=== PATIENT | female | born 1950 | race Caucasian/White ===

== ENCOUNTER 2017-06-15 07:30 | Emergency (ER) | payer MEDICARE ==
[~2017-06-15] VITALS: Ht 157.5 cm; Wt 90.0 kg
[2017-06-15 07:35] VITALS: BP 144/68; PULSE 68; RESP 15; TEMP 98.1; O2SAT 98
[2017-06-15] MEDS ORDERED: HYDR12.57 PO (08:07)
[2017-06-15] MEDS ORDERED: CITA10TA4 PO (08:07)
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
== END 2017-06-15 10:25 | disposition home or self-care (01) ==
LOC: NEPC 07:30
DX: T76.21XA Adult sexual abuse, suspected, initial encounter (principal); X58.XXXA Exposure to other specified factors, initial encounter
CPT/HCPCS: 99281